=== PATIENT | female | born 1980 | race Caucasian/White ===

== ENCOUNTER 2019-10-15 15:41 | Emergency (ER) | payer BC, SELFPAY ==
[2019-10-15 15:45] VITALS: BP 149/107; PULSE 100; RESP 18; TEMP 36.5; O2SAT 100
[2019-10-15 16:00] VITALS: BP 137/98; PULSE 82; RESP 20; O2SAT 97
--- NOTE | 2019-10-15 16:03 | DI.US.S_ITS ---
PROCEDURE: US EXTREMITY NONVASC LOWER LT INDICATIONS: CALF PAIN, ?GASTROC TEAR TECHNIQUE: Real-time scanning was performed of the left lower leg, with image documentation. COMPARISON: none. FINDINGS: Targeted sonographic imaging at the site of the patient's area of pain was performed, which is noted to be located on the medial aspect of the posterior mid calf. A trace amount of fluid is identified along the aponeurosis between the gastrocnemius and soleus muscles. No definite or drainable hematoma is evident. Nonspecific thickening of the Achilles tendon is present. There is no full-thickness tear. IMPRESSION: 1. Edema/hemorrhage along the aponeurosis between the gastrocnemius and soleus muscles may be related to an injury of the aponeurosis. However, plantaris tendon rupture could also have this appearance and clinical correlation is recommended. 2. Probable Achilles tendinopathy. Dictated by: Juan Bill M.D. on 10/15/2019 at 15:56 Approved by: Juan Bill M.D. on 10/15/2019 at 15:58
[2019-10-15] MEDS: HYDROCODONE/ACET 5/325 TABLET 2 TAB PO (16:21)
--- NOTE | 2019-10-15 18:32 | PC.NURSE ---
walking boot placed to left leg, and crutches provided.
--- NOTE | 2019-10-15 21:21 | ED.LOWEXIN ---
HPI - Extremity Injury (Lower) <MARK Mc - Last Filed: 10/15/19 21:26> General Chief Complaint: Extremity Injury, Lower Stated Complaint: thinks she tore her left calf Time Seen by Provider: 10/15/19 15:56 Source: patient and family Mode of arrival: Wheelchair Limitations: no limitations History of Present Illness HPI Narrative: The patient is a 39-year-old female nonsmoker with history of multiple sclerosis who presents pain. She states she feels as though she ripped her gastroc muscle. She states she was sprinting across the street, felt a sudden pop. She denies any falls. She takes anti-inflammatories and muscle relaxers at home. She has not taken anything in addition. She has applied ice. Related Data Home Medications Medication Instructions Recorded Confirmed topiramate 100 mg PO BID #0 11/03/08 10/15/19 baclofen 15 mg PO DAILY 10/15/19 10/15/19 ergocalciferol (vitamin D2) 50,000 unit PO QWEEK 10/15/19 [Vitamin D2] meloxicam 7.5 mg PO BID PRN 10/15/19 10/15/19 modafinil 200 mg PO DAILY 10/15/19 10/15/19 ondansetron 4 mg PO TID PRN 10/15/19 10/15/19 prednisone 20 mg PO DAILY 10/15/19 10/15/19 rizatriptan 10 mg PO DIRECTED PRN 10/15/19 10/15/19 Previous Rx's Medication Instructions Recorded hydrocodone-acetaminophen [Hope] 1 tab PO Q4H PRN #10 tab 10/15/19 Allergies Allergy/AdvReac Type Severity Reaction Status Date / Time MORPHINE Allergy Intermediate Uncoded 01/22/18 12:09 TRAMADOL Allergy Intermediate Uncoded 01/22/18 12:09 Review of Systems <MARK Mc - Last Filed: 10/15/19 21:26> Review of Systems Narrative: GENERAL: Denies chills, fatigue, malaise, fever, sweats. HEENT: Denies sinus pain, ear pain, sore throat, difficulty swallowing, dizziness. RESPIRATORY: Denies dyspnea, cough, wheezing, hemoptysis, sputum. CARDIOVASCULAR: Denies chest pain, palpitations, orthopnea, edema, GASTROINTESTINAL: Denies nausea, vomiting, abdominal pain, diarrhea, constipation, melena. : Denies dysuria, frequency, incontinence, hematuria, urinary retention. MUSCULOSKELETAL: See HPI SKIN: Denies rash, skin lesions, or other NEUROLOGIC: Denies weakness, headache, numbness, change in speech, confusion, seizures, incoordination. PSYCHIATRIC: No concerning psychosocial issues. 12 point review of systems is negative except for those stated above Patient History <MARK Mc - Last Filed: 10/15/19 21:26> Social History Smoking Status: Never smoker Smoking Status: Never smoker Substance Use Type: does not use Exam <MARK Mc - Last Filed: 10/15/19 21:26> Narrative Exam Narrative: GENERAL: This is a well-nourished, well-developed patient, in no acute distress HEAD: Atraumatic. Normocephalic. No temporal or scalp tenderness. EYES: Pupils equal round and reactive. Extraocular motions intact. No scleral icterus. No injection or drainage. ENT: Nose without bleeding, purulent drainage or septal hematoma. Throat without erythema, tonsillar hypertrophy or exudate. Uvula midline. Airway patent. NECK: Trachea midline. No JVD or lymphadenopathy. Supple, nontender, no meningeal signs. CARDIOVASCULAR: Regular rate and rhythm RESPIRATORY: No cough. No increased respiratory effort. No accessory muscle use. EXTREMITIES: Positive pedal pulses left foot. Able to flex and extend left foot, the reduced range of motion. Capillary refill less than 2 seconds. Pain to palpation left gastroc muscle. BACK: Nontender without deformity or crepitance. No flank tenderness. NEURO: AOx3. SKIN: No rash or erythema on visible skin or left lower leg Initial Vital Signs Initial Vital Signs: Vital Signs Temperature 97.7 F 10/15/19 15:45 Pulse Rate 100 H 10/15/19 15:45 Respiratory Rate 18 10/15/19 15:45 Blood Pressure 149/107 H 10/15/19 15:45 Pulse Oximetry 100 10/15/19 15:45 <Katrina Lemus DO - Last Filed: 10/16/19 07:17> Initial Vital Signs Initial Vital Signs: Vital Signs Temperature 97.7 F 10/15/19 15:45 Pulse Rate 100 H 10/15/19 15:45 Respiratory Rate 18 10/15/19 15:45 Blood Pressure 149/107 H 10/15/19 15:45 Pulse Oximetry 100 10/15/19 15:45 Procedures <MARK Mc - Last Filed: 10/15/19 21:26> Orthopedic Splinting/Casting Injury #1: Side: left Lower Extremity Injury Location: lower leg Lower Extremity Immobilizer: boot orthosis Other Orthopedic Equipment: crutches Post splinting neuro exam: intact Post splinting vascular exam: intact Placed by: Nursing Course <MARK Mc - Last Filed: 10/15/19 21:26> Orders Ordered: Discontinued Medications Hydrocodone Bitart/Acetaminophen (Hope 5/325) 2 tab PO NOW ONE Stop: 10/15/19 16:16 Last Admin: 10/15/19 16:21 Dose: 2 tab Documented by: GRACIE Ketorolac Tromethamine (Toradol) 60 mg IM NOW ONE Stop: 10/15/19 16:04 Last Admin: 10/15/19 16:26 Dose: Not Given Documented by: GRACIE Vital Signs Vital signs: Vital Signs - 8 hr 10/15/19 15:45 10/15/19 16:00 Temperature 97.7 F Pulse Rate 100 H 82 Respiratory Rate 18 20 Blood Pressure 149/107 H Blood Pressure [Right Arm] 137/98 H Pulse Oximetry 100 97 <Katrina Lemus DO - Last Filed: 10/16/19 07:17> Orders Ordered: Discontinued Medications Hydrocodone Bitart/Acetaminophen (Hope 5/325) 2 tab PO NOW ONE Stop: 10/15/19 16:16 Last Admin: 10/15/19 16:21 Dose: 2 tab Documented by: GRACIE Ketorolac Tromethamine (Toradol) 60 mg IM NOW ONE Stop: 10/15/19 16:04 Last Admin: 10/15/19 16:26 Dose: Not Given Documented by: GRACIE Vital Signs Vital signs: Vital Signs - 8 hr 10/15/19 15:45 10/15/19 16:00 Temperature 97.7 F Pulse Rate 100 H 82 Respiratory Rate 18 20 Blood Pressure 149/107 H Blood Pressure [Right Arm] 137/98 H Pulse Oximetry 100 97 MDM - Extremity Injury (Lower) <MRAK Mc - Last Filed: 10/15/19 21:26> Imaging Data Extremity x-ray #1: Radiologist's Impression: [address] [address] Ultrasound Report Signed Patient: Payal Briggs BMR#: [id number] : 1980Acct:[id number] Age/Sex: 39 / FDate of Service: 10/15/19 Loc: ED Accession Number: [id number] Procedure: US extremity nonvasc lower lt Ordering Provider: Katrina Hughes PROCEDURE: US EXTREMITY NONVASC LOWER LT INDICATIONS: CALF PAIN, ?GASTROC TEAR TECHNIQUE: Real-time scanning was performed of the left lower leg, with image documentation. COMPARISON: none. FINDINGS: Targeted sonographic imaging at the site of the patient's area of pain was performed, which is noted to be located on the medial aspect of the posterior mid calf. A trace amount of fluid is identified along the aponeurosis between the gastrocnemius and soleus muscles. No definite or drainable hematoma is evident. Nonspecific thickening of the Achilles tendon is present. There is no full-thickness tear. IMPRESSION: 1. Edema/hemorrhage along the aponeurosis between the gastrocnemius and soleus muscles may be related to an injury of the aponeurosis. However, plantaris tendon rupture could also have this appearance and clinical correlation is recommended. 2. Probable Achilles tendinopathy. Dictated by: Juan Bill M.D. on 10/15/2019 at 15:56 Approved by: Juan Bill M.D. on 10/15/2019 at 15:58 [facility] Narrative Medical decision making narrative: The patient is a 39-year-old female who presents with a chief complaint of sudden onset of left lower leg pain. She is able to flex and extend her foot, helping rule out an Achilles rupture. She is neurovascularly intact with good pedal pulses. Given that she is on anti-inflammatories, steroids and muscle relaxers I gave her Hope which helped her pain. Ultrasound is concerning for possible soft tissue injury. Discussed at length rest ice compression elevation as well as wknd-mel-eysqrqo pain medications as needed and able. I did discuss that Hope can be constipating or sedating. Encourage PCP follow-up in the next few days, discussed that she may need further imaging, or could have a soft tissue injury. She declines any x-rays today stating that she does not have bone pain. I discussed the several times. Patient has no questions or concerns upon discharge and states understanding of return precautions as well as follow-up care Discharge Plan Departure Patient Disposition: Home Clinical Impression: Leg pain, left Discharge Date/Time: 10/15/19 18:36 Instructions: How to Use Crutches, How To Perform RICE (Rest, Ice, Compress, Elevate), DI for Leg Pain Activity Restrictions/Additional Instructions: Your ultrasound today shows suspicion of a soft tissue injury of your left lower leg. Please use rest ice compression elevation. Please follow up with primary care provider next few days. You have been prescribed narcotic medications. I [facility] [place] While on these medications you cannot drive or operate heavy machinery. Additionally you cannot sign legal documents or perform any duties such as this. 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 Please understand that we cannot provide further refills of narcotics or controlled substances through the ED and your pain management will need to be through your Primary Care Provider Prescriptions: New hydrocodone-acetaminophen [Hope] 5-325 mg tablet 1 tab PO Q4H PRN (Reason: pain) Qty: 10 RF: 0 No Action topiramate 100 mg Tablet 100 mg PO BID Qty: 0 RF: 0 prednisone 20 mg tablet 20 mg PO DAILY RF: 0 meloxicam 7.5 mg tablet 7.5 mg PO BID PRN (Reason: pain) RF: 0 modafinil 200 mg tablet 200 mg PO DAILY RF: 0 baclofen 10 mg tablet 15 mg PO DAILY RF: 0 rizatriptan 10 mg tablet,disintegrating 10 mg PO DIRECTED PRN (Reason: Migraine Headache) RF: 0 ergocalciferol (vitamin D2) [Vitamin D2] 50,000 unit capsule 50,000 unit PO QWEEK RF: 0 ondansetron 4 mg tablet,disintegrating 4 mg PO TID PRN (Reason: Nausea) RF: 0 Stand Alone Forms: Work Release Note
== END 2019-10-15 18:36 | disposition home or self-care (01) ==
PROVIDERS: Emergency Provider Nurse Practitioner Family
DX: M79.662 Pain in left lower leg (principal)
CPT/HCPCS: 76882; 99283

== ENCOUNTER → 2019-10-30 08:03 | Outpatient (CLI) | payer BC, SELFPAY ==
--- NOTE | 2019-10-30 | DI.MRI.S_ITS ---
PROCEDURE: MR KNEE LT WO CON INDICATIONS: RADICULOPATHY SPONDYLOSIS TECHNIQUE: Noncontrast sagittal PD fast spin echo and T2 fast spin echo with fat saturation, sagittal 3-D FLASH with fat saturation; coronal T1 spin echo and PD fast spin echo with fat saturation, and axial PD fast spin echo with fat saturation through the knee. COMPARISON: None. FINDINGS: Image quality: Excellent. Menisci: The medial and lateral menisci demonstrate normal morphology and internal signal. The meniscal root ligaments appear intact. Cruciate ligaments: The anterior and posterior cruciate ligaments appear intact. Medial structures: The medial collateral ligament appears intact. The posterior oblique ligament, semimembranosus tendon insertions, oblique popliteal ligament, and meniscocapsular junction appear intact. Visualized portions of the pes anserinus tendons appear normal. No abnormal bursal fluid. Lateral structures: The lateral collateral ligament, long and short heads of the biceps femoris tendon appear intact. The popliteus tendon appears normal; the popliteofibular ligament appears intact. The posterosuperior and anteroinferior popliteomeniscal fascicles appear intact. The arcuate and fabellofibular ligaments appear intact, on either side of the lateral inferior geniculate artery. Iliotibial band appears normal. Anterior structures: The quadriceps and patellar tendons appear intact. Patellar alignment is normal. No femoral trochlear dysplasia or ventral trochlear prominence. No edema in the infrapatellar fat pad. Bones and cartilage: No bone marrow contusions or fractures. The cartilage of the medial and lateral femorotibial compartments appears normal in thickness. There is focal thinning and irregularity of the articular cartilage involving the medial facet of the patella and the central trochlea. Joint space: There is physiologic knee joint fluid. No Verdin's cyst. Normal appearing synovial plicae are incidentally noted. IMPRESSION: 1. No evidence of internal derangement. 2. 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 Dictated by: Kriss Cuadra MD, PhD on 10/30/2019 at 13:33 Approved by: Kriss Cuadra MD, PhD on 11/02/2019 at 9:18
--- NOTE | 2019-10-30 | DI.MRI.S_ITS ---
PROCEDURE: MR LOWER LEG LT WO CON COMPARISON: [facility], MR, MR KNEE LT WO CON, 10/30/2019, 8:14. [facility], US, US EXTREMITY NONVASC LOWER LT, 10/15/2019, 16:29. [facility], CR, CHEST 2VW, 04/02/2011, 14:16. INDICATIONS: RADICULOPATHY SPONDYLOSIS TECHNIQUE: Multiplanar, multisequence MR imaging of the left lower leg was performed without contrast. FINDINGS: Motion artifact on this examination does result in difficulty evaluating for subtle abnormalities. Soft tissues: There is edema identified along the aponeurosis between the medial gastrocnemius muscle and the soleus muscle. A small amount of fluid is identified within this region. There is also mild increased signal evident involving the distal gastrocnemius muscle. No definite tendon fragment is identified within this region. The soleus muscle is unremarkable. There is no significant muscle atrophy. The remainder of the soft tissues of the left lower leg are otherwise unremarkable. No soft tissue masses or drainable fluid collections are identified. Is not that the knee and ankle structures are not adequately evaluated on this study. Included portions of the right lower leg are unremarkable. Bones: No acute fracture or dislocation is evident. No suspicious osseous lesion is identified. IMPRESSION: 1. Findings are compatible with tennis leg with an injury along the aponeurosis between the gastrocnemius and soleus muscles. No definite tendon fragments are evident to suggest a plantaris tendon rupture. 2. Mild strain of the distal gastrocnemius muscle. Dictated by: Juan Bill M.D. on 10/30/2019 at 8:32 Approved by: Juan Bill M.D. on 10/30/2019 at 8:40
== END ==
PROVIDERS: PCP Physician Assistant Medical; Visit Provider Orthopaedic Surgery
DX: M47.20 Other spondylosis with radiculopathy, site unspecified (principal); S86.812A Strain of other muscle(s) and tendon(s) at lower leg level, left leg, initial encounter; M22.42 Chondromalacia patellae, left knee; X58.XXXA Exposure to other specified factors, initial encounter
CPT/HCPCS: 73718; 73721

== ENCOUNTER → 2023-08-07 10:48 | Outpatient (CLI) | payer OTHER, SELFPAY ==
--- NOTE | 2023-08-07 | DI.RAD.S_ITS ---
Bone Density Report Name: VON MCDONALD Age: 43 Sex: Female Ethnicity: White Date of : 1980 Indication: postmenopausal; Referring Provider: JAVAD CATHERINE Study: Bone densitometry was performed. Exam Date: August 07, 2023 Accession number: [id number] Bone Density: Region BMD T-score Z-score Classification AP Spine(L1-L4) 1.061 0.1 0.5 Normal Femoral Neck (Left) 0.808 -0.4 0.0 Normal Total Hip (Left) 0.973 0.3 0.5 Normal Femoral Neck (Right) 0.822 -0.2 0.1 Normal Total Hip (Right) 0.992 0.4 0.7 Normal Total Hip Mean 0.983 0.4 0.6 Normal World Health Organization criteria for BMD impression classify patients as: Normal (T-score at or above -1.0), Osteopenia (T-score between -1.0 and -2.5), or Osteoporosis (T-score at or below -2.5). 10-year Fracture Risk: FRAX not reported because: All T-scores for Spine Total, Hip Total, Femoral Neck at or above -1.0 Impression: The patient has normal bone mass. Discussion: BONE DENSITY IS ABOVE THE MINIMUM DESIRABLE LEVEL AT ALL SKELETAL SITES TESTED. This patient's bone mineral density is above the minimum desirable level (T-score -1.0 or better) at all sites measured. The patient should follow a healthful lifestyle (good nutrition with adequate calcium and vitamin D, and appropriate weight-bearing exercise). Follow-Up: Consider repeating this study in 5 years or sooner if there is some new clinical indication. Reported by: KARIME ANDRES MD on 08/07/2023 11:23:00 AM.
--- NOTE | 2023-08-07 | DI.NM.S_ITS ---
PROCEDURE: NM BONE SCAN WHOLE BODY RADIOPHARMACEUTICAL: 20.3 mCi Tc-99m MDP IV. INDICATIONS: Multiple fractures of ribs, bilateral, sequela TECHNIQUE: Delayed whole-body scintigrams were obtained approximately 3-4 hours after intravenous injection of radiotracer. Anterior and posterior views were acquired from vertex to feet. Additional left and right oblique views of the thoracic cage were obtained. COMPARISON: [facility], MR, MR LOWER LEG LT WO CON, 10/30/2019, 8:50. Outside Film, CR, XR CHEST 1 VIEW, 10/22/2022, 16:39. FINDINGS: Are multiple rib fractures bilaterally, involving the anterior right 3rd, 7th and 8th ribs, and posterior 3rd, 4th, 5th, 6th, 7th and 8th ribs bilaterally. There is a focal uptake in the distal left femoral diaphysis. Intense activity is noted in the right hindfoot. Increased activity in maxilla is probably secondary to dental disease. No lesions are identified in skull, sternum, clavicles, scapulae or bony pelvis. There are foci of increased uptake in cervical, thoracic and lumbar spine most likely secondary to degenerative disc and facet disease. There are foci of increased periarticular activity most pronounced in shoulders and left knee, compatible with degenerative/arthritic changes. IMPRESSION: 1. Multiple rib fractures are present, chronicity is uncertain, probably mixed subacute and chronic. Uptake in the anterior aspect of the right 8th rib is most intense. Recommend radiographic correlation. 2. Focal uptake in the distal left femoral shaft. Recommend radiographic correlation. 3. Intense abnormal uptake in the right hindfoot. Recommend radiographic correlation. 4. Degenerative/arthritic changes as described. Dictated by: Barbara Morgan M.D. on 08/07/2023 at 16:49 Approved by: Barbara Morgan M.D. on 08/07/2023 at 17:00
== END ==
PROVIDERS: PCP Physician Assistant Medical; Referring Provider Physician Assistant Medical; Visit Provider Physician Assistant Medical
DX: S22.43XS Multiple fractures of ribs, bilateral, sequela (principal); Z78.0 Asymptomatic menopausal state; Z90.710 Acquired absence of both cervix and uterus; Z92.241 Personal history of systemic steroid therapy
CPT/HCPCS: 77080; 78306; A9503

== ENCOUNTER 2024-03-26 12:18 | Emergency (ER) | payer OTHER, SELFPAY ==
[2024-03-26 12:33] VITALS: BP 146/84; PULSE 90; RESP 16; TEMP 36.5; O2SAT 97; BMI 34.1
[2024-03-26 16:04] VITALS: BP 131/86; PULSE 92; RESP 12; TEMP 37.1; O2SAT 98
--- NOTE | 2024-03-26 18:16 | PC.NURSE ---
The patient has an deep ulceration on the bottom of her right breast just under the nipple. The ulcer is deep to subq tissue and is free from drainage. The outer boarder is red and there is an inner ring of dark tissue and then the center is yellow/ white . It is not bleeding. She noticed the wound as a blister on the 2nd. Then went to see her doctor on the 3rd and started cephalexin. She is almost done with the cephalexin and is not noticing a change.
[2024-03-26 18:53] VITALS: BP 114/75
--- NOTE | 2024-03-26 19:35 | ED.WOUNDLAC ---
HPI - Wound/Laceration General Chief Complaint: Wound/Laceration Stated Complaint: deep open wound around breast Time Seen by Provider: 03/26/24 17:56 Source: patient Mode of arrival: Ambulatory History of Present Illness HPI narrative: Patient is a 43-year-old female here for evaluation of wound located on the underside of her right breast. She states she noticed it approximately 1 week ago. She has been seen by an outside emergency department on Keflex. States the symptoms have not improved and potentially worsening. There was a question of switching her to another medicine which sounds like it was Bactrim. She stated that the pharmacist would not fill it because of her history of myasthenia gravis. She comes emergency department today because she states last evening the top of the wound came off. She states that it did start to drain what appeared to be purulent material. She also states that she had an ultrasound done during her last visit which did not show any deep abscess/infection. Related Data Home Medications Medication Instructions Recorded Confirmed topiramate 100 mg tablet 100 mg PO BID ##0 11/03/08 10/15/19 baclofen 10 mg tablet 15 mg PO DAILY 10/15/19 10/15/19 ergocalciferol (vitamin D2) 1,250 50,000 unit PO QWEEK 10/15/19 mcg (50,000 unit) capsule (Vitamin D2) meloxicam 7.5 mg tablet 7.5 mg PO BID PRN pain 10/15/19 10/15/19 modafinil 200 mg tablet 200 mg PO DAILY 10/15/19 10/15/19 ondansetron 4 mg disintegrating 4 mg PO TID PRN Nausea 10/15/19 10/15/19 tablet prednisone 20 mg tablet 20 mg PO DAILY 10/15/19 10/15/19 rizatriptan 10 mg disintegrating 10 mg PO DIRECTED PRN Migraine 10/15/19 10/15/19 tablet Headache Previous Rx's Medication Instructions Recorded hydrocodone 5 mg-acetaminophen 325 1 tab PO Q4H PRN pain #10 tabs 10/15/19 mg tablet ([place]) doxycycline hyclate 100 mg tablet 100 mg PO BID 10 days #20 tabs 03/26/24 Allergies Allergy/AdvReac Type Severity Reaction Status Date / Time MORPHINE Allergy Intermediate Uncoded 01/22/18 12:09 TRAMADOL Allergy Intermediate Uncoded 01/22/18 12:09 Review of Systems Integumentary/Breasts Skin/Breast: Reports system reviewed and no additional complaints, except as documented Patient History Medical History Myasthenia gravis Social History Smoking Status: Never smoker Smoking Status: Never smoker Substance Use Type: does not use Exam Initial Vital Signs Initial Vital Signs: Vital Signs Temperature 97.7 F 03/26/24 12:33 Pulse Rate 90 03/26/24 12:33 Respiratory Rate 16 03/26/24 12:33 Blood Pressure 146/84 H 03/26/24 12:33 Pulse Oximetry 97 03/26/24 12:33 Oxygen Delivery Method Room Air 03/26/24 12:33 Skin Other: Patient has a 2.5 x 2.5 cm abscess located on the 6 o'clock position of the right breast. There is some granulation tissue and eschar noted. There was no surrounding erythema. Course Orders Ordered: ED Orders 03/26/24 12:40 Wound Culture and Gram Stain Stat Vital Signs Vital signs: Vital Signs - 8 hr 03/26/24 18:53 03/26/24 19:51 Pulse Rate 76 Respiratory Rate 14 Blood Pressure 114/75 132/80 Pulse Oximetry 99 Oxygen Delivery Method Room Air MDM - Wound/Laceration Medical Records Medical records narrative: Patient is nontoxic appearing. He is afebrile. He has not tachycardic. Has what appears to be an ulceration under her right breast without any surrounding erythema. There was no fluctuance felt. No foreign body noted. There was a culture performed today. The patient's symptoms are not improving with the Keflex and potentially even worsening. There was no indication for advanced imaging. Will switch her to doxycycline. Plan will be is to place referral for her to see wound care. There was no indication for admission to the hospital today. No indication surgical consultation. Patient was given return precautions. Discharge Plan Departure Patient Disposition: Home Clinical Impression: Skin ulcer Activity Restrictions/Additional Instructions: You can shower like normal and use soap and water. Recommend that you stop taking the Keflex and start taking the new antibiotic that was prescribed today. You do need follow-up with your primary care doctor. I do recommend that you follow-up with wound care. You can contact them at [phone]. There was a wound culture pending at the time of your discharge and we will contact you if we need to change antibiotics based on this. Prescriptions: New doxycycline hyclate 100 mg tablet 100 mg PO BID 10 Days Qty: 20 0RF No Action topiramate 100 mg Tablet 100 mg PO BID Qty: 0 prednisone 20 mg tablet 20 mg PO DAILY meloxicam 7.5 mg tablet 7.5 mg PO BID PRN (Reason: pain) Patient Comments: TK 1 T PO BID WF FOR ARTHRITIS OR PAIN modafinil 200 mg tablet 200 mg PO DAILY baclofen 10 mg tablet 15 mg PO DAILY rizatriptan 10 mg tablet,disintegrating 10 mg PO DIRECTED PRN (Reason: Migraine Headache) ergocalciferol (vitamin D2) [Vitamin D2] 50,000 unit capsule 50,000 unit PO QWEEK ondansetron 4 mg tablet,disintegrating 4 mg PO TID PRN (Reason: Nausea) hydrocodone-acetaminophen [[place]] 5-325 mg tablet 1 tab PO Q4H PRN (Reason: pain) Qty: 10 0RF Referrals: Vilma Colon PA-C [Primary Care Provider] - Stand Alone Forms: Patient Portal/API
[2024-03-26 19:51] VITALS: BP 132/80; PULSE 76; RESP 14; O2SAT 99
== END 2024-03-26 19:53 | disposition home or self-care (01) ==
PROVIDERS: Emergency Provider Emergency Medicine; PCP Physician Assistant Medical
DX: L98.499 Non-pressure chronic ulcer of skin of other sites with unspecified severity (principal)
CPT/HCPCS: 87070; 87075; 87077; 87147; 87186; 87205; 99281; 99282

== ENCOUNTER 2025-04-24 17:00 | Emergency (ER) | payer OTHER, SELFPAY ==
--- NOTE | 2025-04-24 17:18 | PC.WOUNDPHOT ---
Brought patient back for triage. Patient explained that she had surgery with stint placement at [facility] yesterday and that the stint wire is out 5 inches and she's having bleeding from there. Asked about wait time d/t pain, educated on longest waiting patient. Patient wants doesn't want to do triage and would prefer to leave and present to [facility] where she had surgery instead of waiting in our waiting room d/t unknown amount of time she could be waiting in waiting room. Asked again if she would like to do the triage process including vital signs and try waiting for a little while in waiting room but patient declined stating she would rather go.
== END 2025-04-24 18:08 | disposition left against medical advice (07) ==
PROVIDERS: Emergency Provider Emergency Medicine; PCP Physician Assistant Medical